=== PATIENT | male | born 1990 | race African-American/Black ===

== ENCOUNTER 2018-05-23 01:38 | Emergency (ER) | payer OTHER ==
[~2018-05-23] VITALS: Ht 185.4 cm; Wt 76.2 kg
[2018-05-23 01:45] VITALS: BP 122/57
[2018-05-23] MEDS ORDERED: NAPROSYN500 MG PO (02:16)
[2018-05-23] MEDS ORDERED: HOMATROPAIRE5 ML OPHTHALMIC (02:16)
== END 2018-05-23 02:27 | disposition home or self-care (01) ==
LOC: ER 01:38
DX: H20.9 Unspecified iridocyclitis (principal)